=== PATIENT | female | born 1985 | race Caucasian/White ===

== ENCOUNTER → 2019-05-17 08:30 | Outpatient (CLI) | payer MEDICAID, SELFPAY ==
[2019-05-17 10:10] LABS: Absolute Lymphocyte Count 1.88 X10^3/uL (0.83-4.51); Absolute Neutrophil Count 3.6 X10^3/uL (2.0-7.7); Basophil# 0.05 X10^3/uL; Basophil% 0.8 % (0-1); Eosinophil# 0.19 X10^3/uL; Eosinophils% 3.1 % (0-5); Hematocrit 40.7 % (37-47); Hemoglobin 13.7 g/dL (12.0-15.0); Lymphocyte # 1.88 X10^3/ul (4.0); Lymphocyte % 30.5 % (19-41); Mean Corp Hgb Conc 33.7 g/dL (32-36); Mean Corpuscular Hgb 30.6 pg (27.0-32.0); Mean Corpuscular Volume 91.1 fL (81-99); Mean Platelet Vol. 10.2 fl (6.2-12.0); Monocyte# 0.42 X10^3/uL; Monocyte% 6.8 % (0-10); NRBC Flagged by Analyzer 0 % (0-5); Neutrophil # 3.59 X10^3/uL (2.7-7.7); Neutrophil % 58.3 % (47-70); Platelet Count 300 K/mm3 (150-450); RBC Distribution Width CV 12.6 % (11.6-14.6); Red Blood Count 4.47 M/mm3 (4.2-5.4); White Blood Count 6.2 K/mm3 (4.4-11.0)
[2019-05-17 10:36] LABS: BUN 14 mg/dL (7-18); Creatinine, Serum 0.66 mg/dL (0.55-1.02); EST Glomerular Filtration Rate 109 mL/min (>60); Glucose 82 mg/dL (74-106)
[2019-05-17 10:37] LABS: ALB/GLOB Ratio 1.2 RATIO (0.9-2.4); AST(SGOT) 22 U/L (15-37); Alanine Aminotransfer ALT/SGPT 23 U/L (13-56); Albumin, Serum 4.1 g/dL (3.2-5.0); Alkaline Phosphatase 70 U/L (45-117); Anion Gap 8 (5-15); BUN/Creat Ratio 21.1 RATIO (10-20); Calcium,Total 8.8 mg/dL (8.5-10.1); Chloride 102 mmol/L (98-107); Cholesterol 227 mg/dL (200); Est Glom Filt Rate - Afr Amer 132 mL/min (>60); Globulin 3.3 g/dL (2.2-4.2); High Density Lipoprotein 49 mg/dL; Potassium 4.4 mmol/L (3.5-5.1); Protein, Total 7.4 g/dL (6.4-8.2); Sodium Level 135 mmol/L (136-145); Thyroid Stim Hormone (TSH) 2.85 uIU/mL (0.358-3.74); Triglycerides 71 mg/dL; Very Low Density Lipoprotein 14 mg/dL (5-40)
== END ==
PROVIDERS: Family Provider Family Medicine; PCP Family Medicine; Referring Provider Family Medicine; Visit Provider Family Medicine
DX: E78.5 Hyperlipidemia, unspecified (principal); L65.9 Nonscarring hair loss, unspecified; W88.8XXA Exposure to other ionizing radiation, initial encounter
CPT/HCPCS: 36415; 80053; 80061; 84443; 85025

== ENCOUNTER → 2021-10-13 12:32 | Outpatient (CLI) | payer MEDICARE, MEDICAID, SELFPAY ==
--- NOTE | 2021-10-13 12:37 | MRI_ITS ---
EXAM: MR HEAD WITHOUT AND WITH INTRAVENOUS CONTRAST CLINICAL INDICATION: hx medulloblastoma- surgery 1998/radiation; no complaints TECHNIQUE: Multiplanar and multisequence MR images of the brain were obtained without and with intravenous contrast. This report was created using [employer] technology. CONTRAST: IV 9ml Dotarem COMPARISON: None. FINDINGS: BRAIN AND EXTRA-AXIAL SPACES: Dilated 4th ventricle is likely related to resection of the medulloblastoma. There is peripheral enhancement along the right posterior aspect of the 4th ventricle which may suggest local recurrence. Single metastatic focus along the right frontal parietal lobe measuring 2.9mm. There is metastatic focus along the right frontal parietal lobe on series 10 image 19. Series 1201 image 47. No intra- or extra-axial hemorrhage. SELLA: Unremarkable. Normal sella turcica, pituitary gland, infundibular stalk, optic chiasm and hypothalamus. AUDITORY SYSTEM: Unremarkable. The internal auditory canals are patent. BONES/JOINTS: Unremarkable. No discrete lytic or blastic abnormalities. SINUSES: Unremarkable as visualized. Clear. MASTOID AIR CELLS: Unremarkable as visualized. Clear. ORBITS: Unremarkable as visualized. Both globes, extraocular muscles, optic nerves and retrobulbar fat appear unremarkable. VASCULATURE: Unremarkable as visualized. Normal flow voids in the major intracranial circulation. TUBES, LINES AND DEVICES: Old right [employer] shunt tract site noted along the right frontal lobe. MRI/Brain W/WO Contrast IMPRESSION: 1. Dilated 4th ventricle is likely related to resection of the medulloblastoma. There is peripheral enhancement along the right posterior aspect of the 4th ventricle which may suggest local recurrence. 2. Single metastatic focus along the right frontal parietal lobe measuring 2.9mm. Electronically Signed: En Leon MD at 16:49 EST , Service support ,
== END ==
PROVIDERS: PCP Family Medicine; Referring Provider Family Medicine; Visit Provider Family Medicine
DX: Z08 Encounter for follow-up examination after completed treatment for malignant neoplasm (principal); Z85.41 Personal history of malignant neoplasm of cervix uteri
CPT/HCPCS: 70553; A9575

== ENCOUNTER → 2023-01-07 | Outpatient (CLI) | payer MEDICARE, MEDICAID, SELFPAY ==
[2023-01-07 12:35] LABS: Hematocrit 40.4 % (37-47); Hemoglobin 13.2 g/dL (12.0-15.0); Mean Corp Hgb Conc 32.7 g/dL (32-36); Mean Corpuscular Hgb 29.8 pg (27.0-32.0); Mean Corpuscular Volume 91.2 fL (81-99); Mean Platelet Vol. 10.4 fl (6.2-12.0); Platelet Count 332 K/mm3 (150-450); RBC Distribution Width CV 13.4 % (11.6-14.6); RBC Distribution Width SD 45.3 fl (35.1-43.9); Red Blood Count 4.43 M/mm3 (4.2-5.4); White Blood Count 5.5 K/mm3 (4.4-11.0)
[2023-01-07 13:16] LABS: ALB/GLOB Ratio 1.1 RATIO (0.9-2.4); AST(SGOT) 22 U/L (15-37); Alanine Aminotransfer ALT/SGPT 23 U/L (13-56); Albumin, Serum 4.1 g/dL (3.2-5.0); Alkaline Phosphatase 67 U/L (45-117); Anion Gap 8 (5-15); BUN 10 mg/dL (7-18); BUN/Creat Ratio 13.1 RATIO (10-20); Calcium,Total 9.7 mg/dL (8.5-10.1); Chloride 106 mmol/L (98-107); Cholesterol 194 mg/dL (200); Creatinine, Serum 0.76 mg/dL (0.55-1.02); EST Glomerular Filtration Rate 91 mL/min (>60); Est Glom Filt Rate - Afr Amer 110 mL/min (>60); Globulin 3.8 g/dL (2.2-4.2); Glucose 91 mg/dL (74-106); High Density Lipoprotein 51 mg/dL; Potassium 4.5 mmol/L (3.5-5.1); Protein, Total 7.9 g/dL (6.4-8.2); Sodium Level 141 mmol/L (136-145); Triglycerides 63 mg/dL; Very Low Density Lipoprotein 13 mg/dL (5-40)
== END | disposition home or self-care (01) ==
LOC: MFPLAB 09:57
PROVIDERS: PCP Family Medicine; Visit Provider Nurse Practitioner Family
DX: Z13.1 Encounter for screening for diabetes mellitus (principal); Z13.220 Encounter for screening for lipoid disorders; R79.89 Other specified abnormal findings of blood chemistry; Z85.841 Personal history of malignant neoplasm of brain
CPT/HCPCS: 36415; 80053; 80061; 85027

== ENCOUNTER → 2023-01-14 | Outpatient (CLI) | payer MEDICARE, MEDICAID, SELFPAY ==
--- NOTE | 2023-01-14 07:49 | ECHOCS_ITS ---
Reason For Study: Hx of Meduloblastoma Procedure This was a 2D Doppler, Color Flow transthoracic echocardiogram. The study was technically difficult. Contrast injection was performed. Exam performed in department. Left Ventricle Normal LV size. The estimated ejection fraction is 70 %. No evidence for diastolic dysfunction. No regional wall motion abnormalities noted. Right Ventricle Normal RV size. Normal systolic function. Atria Normal left atrium. Normal right atrium. No doppler evidence for ASD. Mitral Valve There is no mitral valve stenosis. No mitral valve insufficiency. Tricuspid Valve There is no tricuspid stenosis. Unable to estimate RV systolic pressure due to inadequate jet, pulmonary artery pressure probably normal. Aortic Valve Trisinus/trileaflet aortic valve. There is no aortic stenosis. No aortic valve insufficiency. Pulmonic Valve There is no pulmonic valvular stenosis. No pulmonic valve insufficiency. Great Vessels Normal aortic root. Pericardium/Pleural No pericardial effusion. Medication 22 gauge I.V. with prn adaptor inserted into left arm. Diluted definity 2ml given slow IV push to enhance endocardial definition. MMode/2D Measurements & Calculations LVIDd: 3.2 cm IVSd: 0.74 cm Ao root diam: 2.6 cm LVIDs: 2.3 cm LVPWd: 0.71 cm LA dimension: 2.4 cm RVDd: 3.2 cm FS: 27.3 % LAV(MOD-bp): 18.5 ml LA A4 area: 8.1 cm2 RA A4 area: 7.9 cm2 LAV(MOD-bp) Indexed: 12.0 ml/m2 LAV(MOD-sp2): 26.0 ml LAV(MOD-sp4): 13.2 ml Time Measurements MV dec time: 0.19 sec Doppler Measurements & Calculations MV E max stevenson: 70.8 cm/sec Lat Peak E' Stevenson: 16.8 cm/sec Med Peak E' Stevenson: 11.1 cm/sec MV A max stevenson: 64.3 cm/sec E/E' lat: 4.2 E/E' med: 6.4 MV E/A: 1.1 MV V2 max: 95.9 cm/sec MV dec slope: 381.5 cm/sec2 Ao V2 max: 100.7 cm/sec MV max P.7 mmHg Ao max P.1 mmHg MV V2 mean: 50.9 cm/sec MV mean P.2 mmHg MV V2 VTI: 17.7 cm LV V1 max: 86.0 cm/sec PA V2 max: 81.5 cm/sec LV V1 max P.0 mmHg PA V2 mean: 63.3 cm/sec ECHO/Echo Complete W/ Contrast Interpretation Summary The estimated ejection fraction is 70 %. No evidence for diastolic dysfunction. Ordering Physician: Ilana Erazo Referring Physician: Aniceto Mondragon Performed By: Gustabo Childers RCS
== END | disposition home or self-care (01) ==
LOC: CVS 07:48
PROVIDERS: PCP Family Medicine; Referring Provider Nurse Practitioner Family; Visit Provider Nurse Practitioner Family
DX: I70.0 Atherosclerosis of aorta (principal); Z85.841 Personal history of malignant neoplasm of brain
CPT/HCPCS: 93306; Q9957; A4216; C8929

== ENCOUNTER 2023-02-09 06:30 | Day surgery (SDC) | payer MEDICARE, MEDICAID, SELFPAY ==
[2023-02-09] VITALS (7 sets, daily range): BP systolic 102–141; BP diastolic 71–85; PULSE 67–99; RESP 16–18; TEMP 36.3–36.9; O2SAT 96–100; BMI 20.2
--- NOTE | 2023-02-09 06:45 | SUR.PHASEI ---
pt is on her period and states there is no way she is , reused test.
[2023-02-09] MEDS: Lactated Ringers 1,000 ML 15 ML IV (06:59)
--- NOTE | 2023-02-09 07:20 | PCM.HP.BLA ---
History and Physical Date of Admission: 02/09/23 Date of Service:? 01/13/23 MR#: [id number] Acct: [id number] Name:JESUS THOMPSON Rep #: [id number] : 1985 ? ? Provider: Dr. Marsha Echeverria MD Age/Sex:? 37/F ? ? Location: [facility] [place] Status: Signed Intake Vital Signs ? 01/13/2314:14 Height 5 ft 3 in Weight: 117 lb BMI 20.7 BP 123/87 H Blood Pressure Location Rt brachial Position Sitting Respiration 16 Pulse 97 Pulse Source Monitor Temp 97.3 F L Temp Source Temporal Pulse Oximetry (%) 99 Intake Visit Reasons:?C-Scope Chief Complaint: c-scope consult Is patient in pain?: No PFSH Medical History?(Updated 01/13/23 @ 14:[address] Marsha Echeverria MD) History of medulloblastoma Surgical History?(Updated 01/13/23 @ 14:[address] Marsha Echeverria MD) S/P brain surgery Family History?(Updated 01/13/23 @ 14:13 by Silvia Cantu) Mother CancerSister Asthma HPI HPI HPI: 37-year-old female presents with her mom for screening colonoscopy.? Patient has a history of medulloblastoma at age 14 which was treated with resection, chemo and radiation.? Radiation included the cranium as well as full spine which also puts her at increased risk for colon cancer.? Recommendation is colonoscopy every 5 years beginning at age 30.? Patient's never had previous colonoscopy.? Patient has bowel movements daily denies any blood.? Patient denies any chronic abdominal pain/nausea/vomiting/reflux.? Patient's paternal grandfather did have colon cancer in his 80s. ROS General General: No weight change, appetite, fatigue, colon cancer, breast cancer or weakness HEENT HEENT: No difficulty swallowing, eye injury, eye surgery, swollen glands or hoarseness Endo Endocrine: No thyroid disease, diabetes mellitus, thyroid cancer, Hair loss, heat intolerance or cold intolerance Skin Skin: No rash or changing moles Breast Breast: No left breast lump, right breast lump, nipple discharge, breast pain, abnormal mammogram, abnormal US or breast enlargement Musc Musculoskeletal: No back problems, arthritis, rheumatoid arthritis, gout or joint pain Cardio Cardiovascular: No murmur, pacemaker, heart disease, atrial fibrillation, high blood pressure, heart attack, heart stent, palpitations, shortness of breat with exertion or chest pain Psych Psychiatric: No depression, anxiety or hearing voices Resp Respiratory: No shortness of breath, No sleep apnea, No cough, No COPD, No asthma, No emphysema and No wheezing Gastro Gastrointestinal: No abdominal pain, No nausea or vomiting, No diarrhea, No constipation, No blood in stool, No acid reflux, No hemorrhoids, No ulcers, No gallbladder problem and No black,tarry stools Carson Hematologic: No blood thinners, No blood disorders, No bleeding, No anemia and No blood clots Neuro Neurologic: No system reviewed and no additional complaints, except as documented, No as per HPI, No abnormal gait, No abnormal hearing, No abnormal movements, No abnormal speech, No behavioral changes, No burning sensations, No confusion, No convulsions, No disequilibrium, No dizziness, No localized weakness, No frequent falls, No headache(s), No lack of coordination, No loss of vision, No memory loss, No numbness, No other visual disturbances, No radicular pain, No restless legs, No sensory deficit, No syncope, No tingling, No tremor(s), No weakness and No other Exam Const General: cooperative and comfortable Eyes Other: Patient is blind Resp Effort & Inspection: normal respiratory effort Cardio Rate: regular rate GI Inspection: non-distended Palpation: soft, no guarding and nontender Skin General: no rashes or lesions noted Neuro General: patient oriented x3 Extrem General: no clubbing, cyanosis or edema Psych Affect: normal affect Assessment and Plan Assessment and Plan (1) History of medulloblastoma: ?Status:?Acute ?Comment: at age 14- treated at [facility]--s/p chemo, rad to posterior fossa/full spine (radiation field includes heart and abd) (2) High risk for colon cancer: ?Status:?Acute Plan I have discussed the above with the patient. I have offered the patient colonoscopy for evaluation. I have explained the risks/benefits of the procedure and described the procedure.? I have discussed the risks with the patient, including but not limited to:? infection, bleeding, perforation of the GI tract requiring emergency surgery, inability to complete the procedure, injury to any internal organs, complications of anesthesia, etc. - the patient understands and agrees to proceed. I have answered all the patient's questions to the patient's satisfaction and the patient has no further questions. The patient has been given instructions for the colon cleansing preparation.? 1 day of clears, MiraLAX Dulcolax prep Marsha Echeverria M.D. Pager: [phone] [facility] [address] [place] [address], [facility], [address] [place] [address] Office: [phone] Coding Level of Care Code Off vis,new,level 3 Diagnoses History of medulloblastoma? Z85.841 High risk for colon cancer? Z91.89 01/13/23 1435 <Electronically signed by Marsha Echeverria MD> Date Marsha Echeverria MD
--- NOTE | 2023-02-09 08:14 | OP.COLON_ITS ---
Patient Name: Cecilia Valentin Procedure Date: 02/09/2023 7:55 AM Date of : 1985 Age: 37 Procedure: Colonoscopy Indications: High risk screening due to hx radiation to entire spine and cranium when 14 years old. Providers: Marsha Echeverria MD Referring MD: Marsha Echeverria MD Medicines: Monitored Anesthesia Care Patient Profile: This is a 37 year old female. Last Colonoscopy: none. The patient's first colonoscopy is today. Complications: No immediate complications. Procedure: Pre-Anesthesia Assessment: - Prior to the procedure, a History and Physical was performed, and patient medications and allergies were reviewed. The patient's tolerance of previous anesthesia was also reviewed. The risks and benefits of the procedure and the sedation options and risks were discussed with the patient. All questions were answered, and informed consent was obtained. Prior Anticoagulants: The patient has taken no previous anticoagulant or antiplatelet agents. ASA Grade Assessment: Per anesthesia. After reviewing the risks and benefits, the patient was deemed in satisfactory condition to undergo the procedure. After I obtained informed consent, the scope was passed under direct vision. Throughout the procedure, the patient's blood pressure, pulse, and oxygen saturations were monitored continuously. The colonoscope was introduced through the anus and advanced to the cecum, identified by the appendiceal orifice, ileocecal valve and palpation. The colonoscopy was performed without difficulty. The patient tolerated the procedure well. The quality of the bowel preparation was good. Scope In: 7:31:53 AM Scope Withdrawal Time 0 hours 9 minutes 14 seconds Scope Out: 7:51:11 AM Total Procedure Duration Time 0 hours 19 minutes 18 seconds Findings: The entire examined colon appeared normal. Impression: - The entire examined colon is normal. - No specimens collected. Recommendation: - Discharge patient to home. - Resume previous diet. - Continue present medications. - Repeat colonoscopy in 5 years for screening purposes. Procedure Code(s): --- Professional --- 44288, PT, Colonoscopy, flexible; diagnostic, including collection of specimen(s) by brushing or washing, when performed (separate procedure) Diagnosis Code(s): --- Professional --- Z12.11, Encounter for screening for malignant neoplasm of colon CPT copyright 2017 [employer]. All rights reserved. The codes documented in this report are preliminary and upon frontload driver review may be revised to meet current compliance requirements. MD Marsha Estes MD 02/09/2023 8:14:02 AM This report has been signed electronically. Number of Addenda: 0 Note Initiated On: 02/09/2023 7:55 AM
--- NOTE | 2023-02-09 08:15 | OP.CCLET_ITS ---
02/09/2023 Sanford Mondragon [address] [place] [address] Re : Colonoscopy procedure for [facility] Dear Dr. Mondragon This procedure was performed on Thursday, February 09, 2023. My impressions and recommendations are as follows: Impressions : - The entire examined colon is normal. - No specimens collected. Recommendations : - Discharge patient to home. - Resume previous diet. - Continue present medications. - Repeat colonoscopy in 5 years for screening purposes. My findings are described in the full procedure note, which is enclosed. If I can be of further assistance, please feel free to contact me at Doctor phone number(s): , Work: . Sincerely, MD Marsha Estes MD 02/09/2023 8:14:02 AM This report has been signed electronically.
== END 2023-02-09 08:56 | disposition home or self-care (01) ==
LOC: EN 06:33 → AC 06:34
PROVIDERS: PCP Family Medicine; Referring Provider Family Medicine; Visit Provider Surgery
PROC: 0DJD8ZZ Inspection of Lower Intestinal Tract, Via Natural or Artificial Opening Endoscopic (ICD-10-PCS; CPT 45378; principal; 2023-02-09 07:25)
DX: Z12.11 Encounter for screening for malignant neoplasm of colon (principal); Z92.3 Personal history of irradiation; Z80.0 Family history of malignant neoplasm of digestive organs; Z92.21 Personal history of antineoplastic chemotherapy
CPT/HCPCS: G0105; J7120; J2405